=== PATIENT | female | born 1965 | race Caucasian/White ===

== ENCOUNTER 2017-06-27 10:09 | Emergency (ER) | payer OTHER ==
[2017-06-27 12:25] VITALS: BP 128/74
== END 2017-06-27 12:25 | disposition home or self-care (01) ==
LOC: ED 10:09
DX: S16.1XXA Strain of muscle, fascia and tendon at neck level, initial encounter (principal); M54.12 Radiculopathy, cervical region; M06.9 Rheumatoid arthritis, unspecified; I10 Essential (primary) hypertension; V49.9XXA Car occupant (driver) (passenger) injured in unspecified traffic accident, initial encounter; Y93.89 Activity, other specified; Y99.8 Other external cause status; Y92.89 Other specified places as the place of occurrence of the external cause
CPT/HCPCS: J1885

== ENCOUNTER 2018-10-10 20:01 | Inpatient (IN) | payer OTHER ==
[~2018-10-10] VITALS: Ht 157.5 cm; Wt 53.2 kg
[2018-10-10 20:54] LABS: RED CELL DISTRIBUTION WIDTH 20.7 % (11.5-14.5)
[2018-10-10 21:05] LABS: CALCIUM 9.3 mg/dL (8.5-10.1); CARBON DIOXIDE 30.2 mmol/L (21-32); CHLORIDE SERUM 100 mmol/L (98-107); CREATININE SERUM 0.8 mg/dL (0.6-1.0); GFR1 > 60 mL/min; GLUCOSE SERUM 159 mg/dL (74-106); POTASSIUM SERUM 3.6 mmol/L (3.5-5.1); SODIUM SERUM 141 mmol/L (136-145)
[2018-10-10 21:10] LABS: ALBUMIN 3.4 g/dL (3.4-5.0); ALKALINE PHOSPHATASE 102 U/L (46-116); ALT/SGPT 14 U/L (14-59); AST/SGOT 21 U/L (15-37); BILIRUBIN TOTAL 0.26 mg/dL (0.20-1.00); TOTAL PROTEIN, SERUM 7.6 g/dL (6.4-8.2)
[2018-10-10 21:23] LABS: BAND NEUTROPHIL 8 % (0-10); BASOPHIL 0 % (0-2); MONOCYTE 4 % (0-7); PLATELET MORPHOLOGY PLATELETS INCREASED; SEGMENTED NEUTROPHILS 84 % (37-75); ovalocyte/elliptocyte 1+; rbc morphology (normal/abnorm) ABNORMAL (NORMAL); tear drop cell (dacryocyte) 1+
[2018-10-10 21:32] LABS: PLATELET COUNT 729 x10^3mcL (130-400)
[2018-10-10] MEDS ORDERED: XELJANZ5 MG (21:34)
[2018-10-10] MEDS ORDERED: PREDNISONE5 MG PO (21:34)
[2018-10-10] MEDS ORDERED: NORCO1 TA2 PO (21:35)
[2018-10-10] MEDS ORDERED: Z (21:35)
[2018-10-10] MEDS ORDERED: MORPHINE SULFAT15 MG (21:35)
[2018-10-10] MEDS ORDERED: LIPITOR40 MG (21:35)
[2018-10-11 00:20] LABS: PHOSPHOROUS 4.4 mg/dL (2.5-4.9)
[2018-10-11 00:21] LABS: CHOLESTEROL/HDL RATIO 2.1
[2018-10-11 01:28] VITALS: BP 128/90
[2018-10-11 05:42] VITALS: BP 149/68; BP 149/681
[2018-10-11 07:06] LABS: CALCIUM 8.5 mg/dL (8.5-10.1); CARBON DIOXIDE 27.6 mmol/L (21-32); CHLORIDE SERUM 105 mmol/L (98-107); CREATININE SERUM 0.5 mg/dL (0.6-1.0); GFR1 > 60 mL/min; GLUCOSE SERUM 80 mg/dL (74-106); MAGNESIUM 1.7 mg/dL (1.8-2.4); PHOSPHOROUS 3.4 mg/dL (2.5-4.9); POTASSIUM SERUM 3.5 mmol/L (3.5-5.1); SODIUM SERUM 139 mmol/L (136-145)
[2018-10-11 07:19] VITALS: BP 145/76
[2018-10-11 07:30] LABS: BASOPHIL % 0.1 % (0-2)
[2018-10-11 07:44] LABS: RED CELL DISTRIBUTION WIDTH 20.9 % (11.5-14.5)
[2018-10-11 07:45] LABS: PLATELET COUNT 626 x10^3mcL (130-400)
[2018-10-11 09:07] LABS: rbc morphology (normal/abnorm) ABNORMAL (NORMAL)
[2018-10-11 09:09] LABS: burr cell (echinocyte) 2+
[2018-10-11 12:42] VITALS: BP 126/82
[2018-10-11 16:26] LABS: UA SPECIFIC GRAVITY 1.015 (1.005-1.035); microscopic required? YES; urine erythrocyte TRACE (NEGATIVE)
[2018-10-11 16:35] LABS: AMPHETAMINE QUAL UR NONE DETECTED (See below)
[2018-10-11 16:50] VITALS: BP 133/74
[2018-10-11 20:57] VITALS: BP 133/67
[2018-10-12 05:31] VITALS: BP 130/60
[2018-10-12 07:14] LABS: CALCIUM 8.6 mg/dL (8.5-10.1); CARBON DIOXIDE 25.2 mmol/L (21-32); CHLORIDE SERUM 107 mmol/L (98-107); CREATININE SERUM 0.6 mg/dL (0.6-1.0); GFR1 > 60 mL/min; GLUCOSE SERUM 76 mg/dL (74-106); POTASSIUM SERUM 3.1 mmol/L (3.5-5.1); SODIUM SERUM 142 mmol/L (136-145)
[2018-10-12 08:55] VITALS: BP 112/67
[2018-10-12 11:34] LABS: PLATELET COUNT 653 x10^3mcL (130-400)
[2018-10-12 13:05] LABS: ATYPICAL LYMPH 3 %; BAND NEUTROPHIL 4 % (0-10); BASOPHIL 0 % (0-2); MONOCYTE 4 % (0-7); SEGMENTED NEUTROPHILS 82 % (37-75)
[2018-10-12 13:07] LABS: acanthocyte (spur cell) 1+; burr cell (echinocyte) 1+; rbc morphology (normal/abnorm) ABNORMAL (NORMAL)
[2018-10-12 13:25] VITALS: BP 137/83
[2018-10-12 17:30] VITALS: BP 142/79
[2018-10-12 21:20] VITALS: BP 146/89
[2018-10-13 05:17] VITALS: BP 130/76
[2018-10-13 06:53] LABS: CALCIUM 8.7 mg/dL (8.5-10.1); CARBON DIOXIDE 28.5 mmol/L (21-32); CHLORIDE SERUM 104 mmol/L (98-107); CREATININE SERUM 0.5 mg/dL (0.6-1.0); GFR1 > 60 mL/min; GLUCOSE SERUM 139 mg/dL (74-106); MAGNESIUM 1.8 mg/dL (1.8-2.4); SODIUM SERUM 141 mmol/L (136-145)
[2018-10-13 08:41] LABS: BASOPHIL % 0.1 % (0-2)
[2018-10-13 08:51] LABS: PLATELET COUNT 653 x10^3mcL (130-400)
[2018-10-13 13:31] VITALS: Ht 157.5 cm; Wt 53.2 kg
[2018-10-13 16:50] VITALS: BP 156/83
[2018-10-13 21:07] VITALS: BP 150/78
[2018-10-14 06:04] VITALS: BP 140/84
[2018-10-14 07:44] LABS: CALCIUM 9.7 mg/dL (8.5-10.1); CARBON DIOXIDE 29.5 mmol/L (21-32); CHLORIDE SERUM 101 mmol/L (98-107); CREATININE SERUM 0.6 mg/dL (0.6-1.0); GFR1 > 60 mL/min; GLUCOSE SERUM 94 mg/dL (74-106); POTASSIUM SERUM 4.3 mmol/L (3.5-5.1); SODIUM SERUM 141 mmol/L (136-145)
[2018-10-14 08:21] LABS: PLATELET COUNT 649 x10^3mcL (130-400); RED CELL DISTRIBUTION WIDTH 20.5 % (11.5-14.5)
[2018-10-14 09:11] LABS: BAND NEUTROPHIL 0 % (0-10); BASOPHIL 0 % (0-2); MONOCYTE 9 % (0-7); SEGMENTED NEUTROPHILS 86 % (37-75)
[2018-10-14 09:12] LABS: rbc morphology (normal/abnorm) ABNORMAL (NORMAL)
[2018-10-14 09:13] LABS: PLATELET MORPHOLOGY PLATELETS INCREASED
[2018-10-14 16:42] VITALS: BP 146/87
[2018-10-14 21:19] VITALS: BP 143/91
[2018-10-15 05:00] VITALS: BP 147/91
[2018-10-15 06:37] LABS: BASOPHIL % 0.1 % (0-2)
[2018-10-15 06:39] LABS: RED CELL DISTRIBUTION WIDTH 20.4 % (11.5-14.5)
[2018-10-15 07:08] LABS: CALCIUM 9.6 mg/dL (8.5-10.1); CARBON DIOXIDE 29.9 mmol/L (21-32); CHLORIDE SERUM 101 mmol/L (98-107); CREATININE SERUM 0.6 mg/dL (0.6-1.0); GFR1 > 60 mL/min; GLUCOSE SERUM 119 mg/dL (74-106); POTASSIUM SERUM 4.8 mmol/L (3.5-5.1); SODIUM SERUM 141 mmol/L (136-145)
[2018-10-15] MEDS ORDERED: NITROFURANTOIN100 MG (09:18)
[2018-10-15] MEDS ORDERED: BACTRIM DS1 TAB PO ×2 (09:18→10:30)
[2018-10-15 09:59] LABS: PLATELET COUNT 644 x10^3mcL (130-400)
[2018-10-15 10:11] VITALS: BP 131/79
[2018-10-15 10:23] VITALS: BP 131/79
[2018-10-15] MEDS ORDERED: NITROFURANTOIN100 MG PO (10:30)
== END 2018-10-15 11:20 | disposition home or self-care (01) | DRG 463 ==
LOC: ED 20:01 → MU 23:20
PROVIDERS: Emergency Medicine; General Practice; Internal Medicine; ADMIT Family Medicine
DX: N39.0 Urinary tract infection, site not specified (principal); B95.62 Methicillin resistant Staphylococcus aureus infection as the cause of diseases classified elsewhere; M06.9 Rheumatoid arthritis, unspecified; R73.03 Prediabetes; E78.5 Hyperlipidemia, unspecified; I10 Essential (primary) hypertension; M19.90 Unspecified osteoarthritis, unspecified site; Z66 Do not resuscitate; M81.0 Age-related osteoporosis without current pathological fracture; Z59.0 Homelessness; Z98.1 Arthrodesis status; Z68.21 Body mass index [BMI] 21.0-21.9, adult; Z79.52 Long term (current) use of systemic steroids; Z82.49 Family history of ischemic heart disease and other diseases of the circulatory system; Z82.61 Family history of arthritis
CPT/HCPCS: 82962; 83880; 97110-GP; 97116-GP; 97530-GP; J0696; J1644; J1885; J2270; J7030; J7512; Q0092